=== PATIENT | female | born 1980 | race Caucasian/White ===

== ENCOUNTER 2017-05-07 23:55 | Emergency (ER) | payer OTHER ==
[~2017-05-07] VITALS: Ht 175.3 cm; Wt 130.0 kg
[2017-05-08 00:04] VITALS: BP 154/70; PULSE 85; RESP 16; TEMP 98.3; O2SAT 99
[2017-05-08] MEDS ORDERED: METF850T PO (00:09)
[2017-05-08] MEDS ORDERED: IBUP-232 PO (01:01)
--- NOTE | 2017-05-08 01:01 | PD ---
HPI Chief Complaint: Musculoskeletal Complaint Time Seen by Provider: 00:50 Travel History International Travel<30 days: No Contact w/Intl Traveler<30days: No Traveled to known affect area: No History of Present Illness HPI The patient is a 36-year-old female that has chronic left knee pain/swelling. She noticed that the pain was worse and the swelling was worse above her left knee. She saw her primary care physician several weeks ago and he took x-rays which showed arthritis. She is not on any medication for this. She is a [employer] and is on her feet much of the time. [facility] Past Medical History ?: Unknown LMP: 04/17/2017 Social History Alcohol Use: No Tobacco Use: No Substance Use: No Allergies-Medications (Allergen,Severity, Reaction): Coded Allergies: cimetidine (Verified Allergy, Severe, Anaphylaxis, 05/08/17) Reported Meds & Prescriptions Reported Meds & Active Scripts Active Reported Metformin (Metformin HCl) 850 Mg Tab 850 Mg PO TIDPC Review of Systems Except as stated in HPI: all other systems reviewed are Neg Physical Exam Narrative GENERAL: Well-nourished, obese patient.The patient is alert, oriented 3, obese in slight apparent distress with her left knee pain. Her vital signs show blood pressure 154/70 but otherwise normal. SKIN: Focused skin assessment warm/dry. HEAD: Normocephalic. EYES: No scleral icterus. No injection or drainage. NECK: Supple, trachea midline. No JVD or lymphadenopathy. CARDIOVASCULAR: Regular rate and rhythm without murmurs, gallops, or rubs. RESPIRATORY: Breath sounds equal bilaterally. No accessory muscle use. GASTROINTESTINAL: Abdomen soft, non-tender, nondistended. MUSCULOSKELETAL: No cyanosis, or edema. There is swelling which appears to be joint fluid lateral and superiorly to the left patella. No erythema is noted. Collaterals, drawer, Iain all intact. There is lateral joint line tenderness without deformity. BACK: Nontender without obvious deformity. No CVA tenderness. Data Data Last Documented VS Vital Signs Date Time Temp Pulse Resp B/P (MAP) Pulse Ox O2 Delivery O2 Flow Rate FiO2 05/08/17 00:04 98.3 85 16 154/70 (98) 99 MDM Medical Decision Making Medical Screen Exam Complete: Yes Emergency Medical Condition: Yes Medical Record Reviewed: Yes Differential Diagnosis Arthritis left knee, degenerative cartilage left knee, ligamentous disorder, cartilage tear left knee Narrative Course The patient may have some degenerating meniscus on the knee. She may also have other degenerating cartilage. She does have swelling around the left lateral knee next to the patella. Her ligaments are intact. The patient's weight likely aggravated his condition. Plan: The patient was given Motrin 600 mg 3 times daily and given 3 days off. She is told to follow-up with an orthopedic physician. Diagnosis Primary Impression: Degeneration of meniscus of left knee Additional Instructions: It would be useful to follow-up with an orthopedic physician to see if he can do something about the pain/cartilage of the left knee. We will give you Motrin 600 mg 3 times daily and a 3 day work excuse to give it some rest. He would be helpful to lose weight as well. Med/Other Pt SpecificInfo: Prescription(s) given Scripts Ibuprofen (Ibuprofen) 600 Mg Tab 600 MG PO Q8H Y for PAIN, #33 TAB 0 Refills Prov: Balaji Mohr MD 05/08/17 Disposition: 01 DISCHARGE HOME Condition: Stable Balaji Mohr MD May 08, 2017 01:01
[2017-05-08] MEDS ORDERED: KETOROLAC TROMETHAMINE 60 MG/2 ML (IM) VIAL IM ONE (01:15)
== END 2017-05-08 01:30 | disposition home or self-care (01) ==
LOC: PHED 23:55
DX: M23.307 Other meniscus derangements, unspecified meniscus, left knee (principal)
CPT/HCPCS: 96372; 99284; J1885